=== PATIENT | male | born 1985 | race African-American/Black ===

== ENCOUNTER 2017-03-11 20:03 | Inpatient (IN) | payer OTHER ==
[~2017-03-11] VITALS: Ht 172.7 cm; Wt 97.5 kg
[2017-03-11 20:22] LABS: BASOPHIL (%) 0.1 % (0-1); EOSINOPHIL (%) 0.5 % (0-5); EOSINOPHIL COUNT 0.1 K/uL (0-0.3); HEMATOCRIT 38.4 % (38.0-50.0); IMMATURE GRANULOCYTE (%) 0.5 % (0.0-0.7); LYMPHOCYTE (%) 10.5 % (15-42); LYMPHOCYTE COUNT 1.7 K/uL (1.0-2.8); MCH 30.2 PG (29.0-34.0); MCHC 33.9 G/DL (30.0-36.0); MCV 89.1 FL (86-99); MONOCYTE (%) 4.8 % (3-12); MONOCYTE COUNT 0.8 K/uL (0-0.8); NEUTROPHIL (%) 83.6 % (45-76); NEUTROPHIL COUNT 13.6 K/uL (1.8-6.4); PLATELET COUNT 198 K/uL (156-360); RBC DIS.WIDTH-CV 12.2 % (11.8-14.6); RBC DIS.WIDTH-SD 39.9 % (39-53); RED BLOOD COUNT 4.31 M/uL (4.00-5.50); WHITE BLOOD COUNT 16.3 K/uL (4.1-10.2)
[2017-03-11 20:30] LABS: AMYLASE 84 IU/L (1-118); CHLORIDE 106 mEq/L (99-109); POTASSIUM 3.2 mEq/L (3.7-5.4); SODIUM 141 mEq/L (136-147)
[2017-03-11 20:32] LABS: GLUCOSE 154 mg/dL (70-99)
[2017-03-11 20:35] LABS: SERUM ETHYL ALCOHOL < 10 mg/dL
[2017-03-11 20:36] LABS: CREATININE 1.3 mg/dL (0.6-1.3); GFR ESTIMATE (CALCULATED) > 59 mL/min/ (58.99-99999)
[2017-03-11 20:37] LABS: UREA NITROGEN (BUN) 10 mg/dL (9-23)
[2017-03-11 20:39] LABS: LIPASE 12 U/L (1.0-51.0)
[2017-03-11 22:25] VITALS: BP 136/70
[2017-03-11 23:47] VITALS: BP 133/62
[2017-03-12 04:27] VITALS: BP 136/63
[2017-03-12 06:03] LABS: HEMATOCRIT 38.4 % (38.0-50.0); HEMOGLOBIN 12.3 G/DL (12.5-16.6); MCH 29.3 PG (29.0-34.0); MCV 91.4 FL (86-99); PLATELET COUNT 210 K/uL (156-360); RBC DIS.WIDTH-CV 12.6 % (11.8-14.6); RBC DIS.WIDTH-SD 41.6 % (39-53); WHITE BLOOD COUNT 10.6 K/uL (4.1-10.2)
[2017-03-12 06:43] LABS: ALBUMIN 4.2 G/DL (3.2-4.8); ALKALINE PHOSPHATASE 54 IU/L (3-129); ALT (GPT) 16 IU/L (3-49); AST (GOT) 33 IU/L (2-34); CHLORIDE 104 MEQ/L (99-109); CREATININE 1.1 MG/DL (0.6-1.3); GFR ESTIMATE (CALCULATED) > 59 mL/min/ (58.99-99999); POTASSIUM 3.5 MEQ/L (3.7-5.4); SODIUM 142 MEQ/L (136-147); TOTAL BILIRUBIN 1.5 MG/DL (0.0-1.0); UREA NITROGEN (BUN) 8 mg/dL (9-23)
[2017-03-12 06:50] LABS: GLUCOSE 60 mg/dL (70-99)
[2017-03-12 07:52] VITALS: BP 163/82
[2017-03-12 10:50] VITALS: BP 144/75
[2017-03-12 16:21] VITALS: BP 151/72
[2017-03-12 19:44] VITALS: BP 158/74
[2017-03-12 23:32] VITALS: BP 167/80
[2017-03-13 05:00] VITALS: BP 155/72
[2017-03-13 08:30] VITALS: BP 144/72
[2017-03-13 11:05] VITALS: BP 134/65
[2017-03-13 15:53] VITALS: BP 136/74
[2017-03-13 19:43] VITALS: BP 144/93
[2017-03-13 23:41] VITALS: BP 160/82
[2017-03-14 04:17] VITALS: BP 137/73
[2017-03-14 08:03] VITALS: BP 135/79
[2017-03-14 11:38] VITALS: BP 159/80
== END 2017-03-14 12:38 | DRG 201 ==
LOC: TRA 20:03 → 3EAST 21:00 → EDOF 21:00 → ENRESERV 21:20 → 3EAST 22:12
PROVIDERS: Emergency Medicine; Surgery
PROC: 0HQ1XZZ Repair Face Skin, External Approach (ICD-10-PCS; principal; 2017-03-11)
PROC: 0W9B00Z Drainage of Left Pleural Cavity with Drainage Device, Open Approach (ICD-10-PCS; principal; 2017-03-11)
DX: S27.0XXA Traumatic pneumothorax, initial encounter (principal); S01.81XA Laceration without foreign body of other part of head, initial encounter; S41.112A Laceration without foreign body of left upper arm, initial encounter; F17.210 Nicotine dependence, cigarettes, uncomplicated; S01.01XA Laceration without foreign body of scalp, initial encounter; Y04.0XXA Assault by unarmed brawl or fight, initial encounter; Y93.9 Activity, unspecified
CPT/HCPCS: 70450; 70486; 71045; 71260; 72125; 72129; 72132; 74177; 80048; 80053; 81003; 82150; 83690; 85025; 85027; 86850; 86900; 86901; 94799; 99281; 99285; G0480; J0690; J1170; J1650; J1885; J2250; J3010